=== PATIENT | female | born 2000 | race African-American/Black ===

== ENCOUNTER 2020-04-25 21:31 | Outpatient (CLI) | payer MEDICAID ==
[~2020-04-25] VITALS: Ht 162.6 cm; Wt 60.5 kg
--- NOTE | 2020-04-25 21:20 | NUR ---
Ambulatory to unit for assessment. Pt states "I had a little bit of a cramp then I had to pee. Now I think maybe a few more cramps. So I just wanted to see how far I was." Oriented to room, monitor, plan of care.
[2020-04-25 21:22] VITALS: BP 125/82; PULSE 90
--- NOTE | 2020-04-25 22:40 | NUR ---
Repeat SVE with no changes, pt denies feeling contractions. Off monitor.
== END 2020-04-25 23:10 | disposition home or self-care (01) ==
LOC: LDRO 21:31
DX: O26.893 Other specified pregnancy related conditions, third trimester (principal); R25.2 Cramp and spasm; Z3A.35 35 weeks gestation of pregnancy

== ENCOUNTER 2020-05-11 19:55 | Inpatient (IN) | payer MEDICAID ==
[~2020-05-11] VITALS: Ht 162.6 cm; Wt 60.9 kg
--- NOTE | 2020-05-11 20:00 | NUR ---
38.1. G1L0. Pt wheeled to LDR 3 with significant other. Clean gown on. EFM and TOCO explained and applied. Pt states she thinks her water broke 1 or 2 hours ago. Denies contractions or vaginal bleeding. Reports good movement. SCE 4/80/-1, Amniotest positive with clear fluid noted. Peripad applied and plan of care explained. Questions answered. 2024: called and updated on pts status. See physican nofitication. 2050: IV started and labs obtained vis IV site. LR bolus and Mike infusing without difficulties. 2124: FHR strip Cat 1 and reactive. Pt off monitors and to ambulate in hallway and in room. Questions answered.
[2020-05-11 20:30] VITALS: BP 132/76; PULSE 83; TEMP 98.4
[2020-05-11 21:00] VITALS: BP 110/73; PULSE 78
[2020-05-11 21:26] LABS: BASO % 0.2 % (0.0-2.0); EOS # 0.1 (0.0-0.7); EOS % 0.4 % (0-4.0); GRAN # 9.4 (1.4-6.5); GRAN % 72.3 % (42.2-75.2); HEMOGLOBIN 10.8 g/dl (12.5-16.0); LYMPH # 2.3 (1.2-3.4); LYMPH % 17.6 % (20.0-51.0); MEAN CELL VOLUME 93 fl (80.0-100.0); MEAN CORPUSCULAR HEMOGLOBIN 31 pg (27.0-31.0); MEAN CORPUSCULAR HGB CONC 33 g/dl (33.0-37.0); MEAN PLATELET VOLUME 11.1 fl (7.4-10.4); MONO # 1.1 (0.1-0.6); MONO % 8.3 % (1.7-9.3); PLATELET COUNT 262 K/mm3 (130-400); RED BLOOD COUNT 3.48 M/mm3 (4.10-5.30); REDCELL DISTRIBUTION WIDTH-CV 13.6 % (11.5-14.5)
[2020-05-11 21:30] VITALS: BP 112/74; PULSE 80
[2020-05-11 21:34] LABS: HEMATOCRIT 32.5 % (37.0-47.0)
--- NOTE | 2020-05-11 21:45 | NUR ---
Roles at nurses station and reviews FHR strip. Orders received to let her labor for a couple of hours and recheck her cervix if she has not changed by then, then start pitocin. Pt educated on pitocin possibly.
[2020-05-11 22:30] VITALS: BP 121/75; PULSE 78; TEMP 98.1
--- NOTE | 2020-05-11 22:47 | NUR ---
FHR strip reactive and Cat 1. Pt off monitors to ambulate in hallway and in room. Plan of care explained to pt and significant other.
[2020-05-12] VITALS (36 sets, daily range): BP systolic 103–149; BP diastolic 57–97; PULSE 70–130; TEMP 97.9–98.6
--- NOTE | 2020-05-12 00:18 | NUR ---
FHR strip reactive. Pt off monitors to ambulate in hallway and around room.
--- NOTE | 2020-05-12 02:58 | NUR ---
FHR strip reactive. Pt off monitors per request to ambulate in hallway and around room
--- NOTE | 2020-05-12 05:40 | NUR ---
Pt off monitors to use restroom. 0544: KACIE remains /-1. Pt states she thinks her contractions have been spacing out. Educated pt on pitocin, pt wanting to start this at this time. Pitocin started per Roles orders and plan of care explained to pt and significant other. Pt denies questions at this time.
--- NOTE | 2020-05-12 07:05 | NUR ---
Pt sitting at EOB. Difficulty tracing FHR due to maternal position. RN at bedside adjusting monitors. FHR audible. Pitocin increased to 8mU.
--- NOTE | 2020-05-12 09:10 | NUR ---
Difficulty tracing ctx due to maternal position. Rn at bedside adjusting monitors. Pt in position due to pain. Discussed positioning and active labor progression. Pt requests epidural. LR bolus infusing.
--- NOTE | 2020-05-12 09:31 | NUR ---
Deceleration noted in the 60s. RN at bedside. SVE per this RN AL/-1 with bloody show. Pt repositioned LL. LR bolus infusing. Pitocin shut off. O2 applied via simple mask at 10L. Dr. Her notified. FHR increasing to 115s while on phone with provider. Pt requesting epidural. 0940-FHR noted in the 115s. Pt positioned at EOB for epidural placement. Tolerated well. Repositioned WL following epidural. 1009-Dr. Her on unit.
--- NOTE | 2020-05-12 10:12 | NUR ---
SVE per provider C/+1. Orders to begin pushing. Pt prepped for delivery. Coaching on pushing efforts. Begins pushing with this RN. Moves vertex well. Dr. Her at bedside. Begins pushing with patient. Orders to increase pitocin to 4mU. 1130- of viable female attended by Dr. Her. Cord clamped x 2 and cut from umbilicus. dried and placed on mother's abdomen. Care of infant to Fauzia Garcia RN. Apgars 03/16/9. 1134- of placenta. Pitocin bolus infusing per protocol. Moderate amount of lochia noted. Orders for methergine IM. See EMAR. 1st degree laceration repaired by provider. Pericare performed. Ice pack applied. Bed locked in low position. Call light within reach. No questions or concerns at this time.
--- NOTE | 2020-05-12 10:45 | NUR ---
Roles on unit. Orders to restart pitocin at 2mU.
[2020-05-13 01:00] VITALS: BP 108/64; PULSE 72; TEMP 98.2
[2020-05-13 04:00] VITALS: BP 99/58; PULSE 64; TEMP 98.4
[2020-05-13 07:05] VITALS: BP 102/56; PULSE 82; TEMP 98.4
[2020-05-13] MEDS ORDERED: IBU600 MG PO (08:09)
[2020-05-13] MEDS ORDERED: PERCOCET 325 MG1 TA2 PO (08:11)
== END 2020-05-13 15:05 | disposition home or self-care (01) | DRG 807 ==
LOC: LDRO 19:55 → OB 20:41 → LDR 20:41 → OB 05-12 14:00
PROVIDERS: ADMIT Obstetrics & Gynecology
PROC: 10E0XZZ Delivery of Products of Conception, External Approach (ICD-10-PCS; principal; 2020-05-12)
PROC: 0HQ9XZZ Repair Perineum Skin, External Approach (ICD-10-PCS; 2020-05-12)
PROC: 10907ZC Drainage of Amniotic Fluid, Therapeutic from Products of Conception, Via Natural or Artificial Opening (ICD-10-PCS; 2020-05-12)
DX: O70.0 First degree perineal laceration during delivery (principal); Z37.0 Single live birth; Z3A.38 38 weeks gestation of pregnancy
CPT/HCPCS: J2210; J2540; J2590; J2795; J7120